=== PATIENT | female | born 1960 | race Caucasian/White ===

== ENCOUNTER 2021-08-20 07:22 | Day surgery (SDC) | payer MEDICARE, BC ==
[2021-08-20] MEDS ORDERED: fentaNYL 100 MCG/2 ML SDV ONE (07:30)
[2021-08-20] MEDS ORDERED: Midazolam 1 MG/ML 2 ML SDV ONE (07:30)
[2021-08-20] MEDS ORDERED: Propofol 200 MG/20 ML SDV ONE (07:30)
[2021-08-20] MEDS ORDERED: Sodium Chloride 0.9% 1,000 ML IV SCH (08:00)
[2021-08-20] MEDS ORDERED: Dexamethasone 4 MG/ML SDV ONE (09:04)
[2021-08-20] MEDS ORDERED: Ondansetron 4 MG/2 ML SDV ONE (09:04)
--- NOTE | 2021-08-21 06:29 | OR ---
DATE OF PROCEDURE: 08/20/2021 SURGEON: Marlo Banerjee MD PROCEDURES PERFORMED: 1. Esophagogastroduodenoscopy. 2. Colonoscopy. 3. Hemorrhoid banding, endoscopically. FINDINGS: 1. Mild inflammation in the GE junction. 2. Diverticulosis, mild. 3. Very tortuous sigmoid and transverse colon. RISKS: Risks, benefits, alternatives, and limitations including, but not limited to infection, bleeding, perforation, false positives, and false negatives were explained to the patient, and they wished to proceed. PROCEDURE IN DETAIL: The patient was placed in left lateral decubitus position. EGD scope was introduced and advanced atraumatically, second part of the duodenum. No evidence of duodenitis or ulceration. Within the stomach itself, there was no gastritis or ulceration. The patient had very mild inflammation in the GE junction concerning for reflux disease. This was biopsied in all 4 quadrants using cold biopsy forceps. The air was removed from the stomach and the esophagus inspected without abnormality. Digital rectal exam was performed. Next, scope was introduced and advanced atraumatically to the ileocecal valve. The patient was noted to have significant tortuous sigmoid and transverse colon. The scope was brought back through the remainder of the colon. She is known to have diverticulosis, described as mild, limited to sigmoid colon, without evidence of diverticulosis or bleeding. No abnormalities on retroflex. The prep was marginal with approximately 90% of the luminal surface could be seen. Hemorrhoid banding was performed of the large internal hemorrhoid. This was performed without difficulty. The patient tolerated the procedure well. Marlo Banerjee MD /[id number]
== END 2021-08-20 10:20 | disposition home or self-care (01) ==
LOC: JP.SDS 07:22
PROVIDERS: ATTEND Surgery
DX: K57.30 Diverticulosis of large intestine without perforation or abscess without bleeding (principal); K29.50 Unspecified chronic gastritis without bleeding; K21.00 Gastro-esophageal reflux disease with esophagitis, without bleeding; K64.8 Other hemorrhoids; I11.0 Hypertensive heart disease with heart failure; Z01.812 Encounter for preprocedural laboratory examination; Z20.822 Contact with and (suspected) exposure to COVID-19
CPT/HCPCS: 43239; 45398; J1100; J2250; J2405; J2704; J3010; J7030; U0002; 88305

== ENCOUNTER 2023-05-22 01:57 | Emergency (ER) | payer MEDICARE, BC ==
[2023-05-22] MEDS ORDERED: Ketorolac 15 MG/ML SDV IVPUSH ONE (02:59)
== END 2023-05-22 05:14 | disposition home or self-care (01) ==
LOC: JP.ED 01:57
DX: S42.252A Displaced fracture of greater tuberosity of left humerus, initial encounter for closed fracture (principal); I10 Essential (primary) hypertension; E03.9 Hypothyroidism, unspecified; Z79.899 Other long term (current) drug therapy; Z91.048 Other nonmedicinal substance allergy status; Z88.8 Allergy status to other drugs, medicaments and biological substances; W06.XXXA Fall from bed, initial encounter
CPT/HCPCS: 73030; 73110; 96374; 99283; J1885

== ENCOUNTER 2024-06-11 18:12 | Emergency (ER) | payer MEDICARE, BC ==
[2024-06-11 19:08] LABS: CALCIUM 8.6 mg/dL (8.5-10.1); EST CRCL DRUG DOSING (CG) 52.49 mL/min; POTASSIUM,K 3.8 mmol/L (3.6-5.2)
[2024-06-11 19:09] LABS: ANION GAP 14.8 mmol/L (5.0-14.0)
[2024-06-11 19:14] LABS: HEMOGLOBIN 14.9 g/dL (11.2-15.5)
[2024-06-11 19:24] LABS: BAND ABSOLUTE MAN 0.48 K/uL; BAND PERCENT MAN 2 % (5-11); LYMPHOCYTES ABSOLUTE MAN 4.56 K/uL (0.8-3.3); LYMPHOCYTES PERCENT MAN 19 % (24-44); MONOCYTES ABSOLUTE MAN 0.72 K/uL (0.20-0.90); MONOCYTES PERCENT MAN 3 % (2-6); NEUTROPHILS ABSOLUTE MAN 18.24 K/uL (1.0-7.6); SEG NEUTROPHILS PERCENT MAN 76 % (36-66)
[2024-06-11 19:25] LABS: ATYPICAL LYMPHOCYTES RARE
[2024-06-11 19:26] LABS: PLATELET COUNT,PLT 234 K/uL (130-375)
[2024-06-11 19:42] LABS: CORONAVIRUS COVID-19 NAA NEGATIVE (NEGATIVE); INFLUENZA A NAA NEGATIVE (NEGATIVE); INFLUENZA B NAA NEGATIVE (NEGATIVE); RESPIRATORY SYNCYTIAL VIR NAA NEGATIVE (NEGATIVE)
== END 2024-06-11 20:12 | disposition home or self-care (01) ==
LOC: JP.ED 18:12
DX: J03.90 Acute tonsillitis, unspecified (principal); E03.9 Hypothyroidism, unspecified; Z91.048 Other nonmedicinal substance allergy status; Z88.8 Allergy status to other drugs, medicaments and biological substances; Z79.890 Hormone replacement therapy; Z79.899 Other long term (current) drug therapy; Z90.49 Acquired absence of other specified parts of digestive tract
CPT/HCPCS: 0241U; 36415; 80048; 84484; 85004; 85018; 85049; 87651; 99284; 99283